=== PATIENT | male | born 1975 | race Caucasian/White ===

== ENCOUNTER 2021-06-10 08:32 | Emergency (ER) | payer MEDICARE, MEDICAID ==
[~2021-06-10] VITALS: Ht 188 cm; Wt 113.6 kg
[2021-06-10] MEDS ORDERED: OLANZapine **IM** 10 mg inj. IM ONE (09:15)
[2021-06-10 10:05] LABS: URINE AMPHETAMINE SCREEN NEGATIVE (Neg); URINE BARBITUATE SCREEN NEGATIVE (Neg); URINE BENZODIAZEPINES SCREEN NEGATIVE (Neg); URINE CANNABINOID SCREEN POSITIVE (Neg); URINE COCAINE SCREEN NEGATIVE (Neg); URINE METHADONE SCREEN NEGATIVE (Neg); URINE OPIATE SCREEN NEGATIVE (Neg); URINE PHENCYCLIDINE SCREEN NEGATIVE (Neg)
[2021-06-10 10:05] LABS: BASOPHILS % (AUTO) 0.2 % (0-1); EOSINOPHILS # (AUTO) 0.1 X10'3 (0-0.9); EOSINOPHILS % (AUTO) 1.4 % (0-6); HEMATOCRIT 39.4 % (42.0-52.0); HEMOGLOBIN 13.5 g/dl (14.0-17.9); LYMPHOCYTES # (AUTO) 1.1 X10'3 (1.1-4.8); LYMPHOCYTES % (AUTO) 11.9 % (21-51); MEAN CORPUSCULAR HEMOGLOBIN 31.1 PG (27.0-31.0); MEAN CORPUSCULAR HGB CONC 34.2 g/dL (33.0-36.5); MEAN CORPUSCULAR VOLUME 90.8 FL (78-98); MONOCYTES # (AUTO) 0.7 X10'3 (0-0.9); MONOCYTES % (AUTO) 7.3 % (2-12); NEUTROPHILS # (AUTO) 7.3 X10'3 (1.8-7.7); NEUTROPHILS % (AUTO) 79.2 % (42-75); PLATELET COUNT 284 X10'3 (140-440); RED BLOOD COUNT 4.34 X10'6 (4.70-6.10); RED CELL DISTRIBUTION WIDTH 14.8 % (11.5-14.5); WHITE BLOOD COUNT 9.2 X10'3 (4.5-11.0)
[2021-06-10] MEDS ORDERED: diphenhydrAMINE 50 mg/ml inj IM ONE (10:20)
[2021-06-10] MEDS ORDERED: LORazepam 2 mg/ml vial IM ONE (10:20)
[2021-06-10 10:22] LABS: ALANINE AMINOTRANSFERASE 40 U/L (12-78); ALBUMIN 3.7 G/DL (3.4-5.0); ALBUMIN/GLOBULIN RATIO 1.1 (1.1-1.5); ALKALINE PHOSPHATASE 82 IU/L (46-116); ANION GAP 10 (8-16); ASPARTATE AMINO TRANSFERASE 30 U/L (10-37); BILIRUBIN,TOTAL 0.5 MG/DL (0.1-1.0); BLOOD UREA NITROGEN 18 MG/DL (7-18); BUN/CREATININE RATIO 17.8 (5.4-32.0); CALCIUM 8.7 MG/DL (8.5-10.1); CHLORIDE 103 MMOL/L (99-107); CREATININE 1.01 MG/DL (0.60-1.10); GLUCOSE 82 MG/DL (70-104); SODIUM 141 MMOL/L (135-145); TOTAL PROTEIN 7.2 G/DL (6.4-8.2); eGFR 80 ML/MIN
[2021-06-10 10:24] LABS: ETHANOL < 0.010 GM/DL (0.0-0.010)
--- NOTE | 2021-06-10 12:40 | NUR ---
PT. TRANSFERRED OVER FROM MAIN ER TO OVERFLOW. PT. PLACED IN BED #24. PT. CHANGED FROM PERSONAL CLOTHING TO GREEN SCRUB SET. STAFF WILL CONTINUE TO MONITOR FOR SAFETY.
--- NOTE | 2021-06-10 13:00 | NUR ---
PACKET FAXED TO [facility] OFFICE
[2021-06-10 13:33] LABS: CLARITY,URINE CLEAR (Clear); COLOR,URINE YELLOW (Yellow); GLUCOSE, URINE NEGATIVE (Neg); KETONES,URINE NEGATIVE (Neg); LEUKOCYTE ESTERASE ,URINE NEGATIVE (Neg); NITRITES, URINE NEGATIVE (Neg); OCCULT BLOOD,URINE NEGATIVE (Neg); PH,URINE 5.5 (4.8-8.0); PROTEIN,URINE NEGATIVE (Neg); UROBILINOGEN,URINE 0.2 E.U/dL (0.2-1.0)
[2021-06-10 13:34] LABS: UA COLLECTION TYPE CLN CATCH MIDSTREAM
--- NOTE | 2021-06-10 14:02 | NUR ---
PATIENT OBSERVED SITTING IN HIS ROOM MAKING DELUSIONAL STATEMENTS OF A "BOMB IN HIS SOCK" AND WATCHING "THOUSANDS OF PEOPLE ". PATIENT NOTED ATTEMPTING TO TALK TO ANOTHER PATIENT ON THE UNIT, STATING, "SORRY FOR WHAT I DID TO YOUR MOM". PATIENT WAS REDIRECTED EASILY, HOWEVER, APPEARS TO BE DISORGANIZED.
--- NOTE | 2021-06-10 15:13 | NUR ---
LEXI'S MOTHER TATI CONTACT INFO: CELL LULING
[2021-06-10] MEDS ORDERED: OLAN5TAB75 PO (15:30)
[2021-06-10] MEDS ORDERED: HALO2TAB PO (15:30)
[2021-06-10] MEDS ORDERED: DULO60CA65 PO (15:30)
[2021-06-10] MEDS ORDERED: METO100T14 PO (15:30)
--- NOTE | 2021-06-10 15:42 | NUR ---
PT. VITAL SIGNS RECHECKED PER MD ORDERS. PT. AROUSES EASILY WHEN NAMED CALLED. PT. PRESENTS WITH RAMBLINGS SPEECH. STAFF WILL CONTINUE TO MONITOR FOR SAFETY.
--- NOTE | 2021-06-10 16:36 | NUR ---
PT. VISIBLE ON THE UNIT RESTING QUIETLY WITH EYES CLOSED. NO DISTRESS NOTED.
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
--- NOTE | 2021-06-10 19:26 | NUR ---
Patient received on the unit in no obvious distress. No physical complaint made. breathing spontanously on room air. Patient is pacing and restless, however he is redirectable. Patient exhibiting delusional thoughts. Patient also admits to homicidal ideation towards his father. He denies having any suicidal ideation at this time.
--- NOTE | 2021-06-10 19:31 | NUR ---
Mental health Clinician is at patient bedside.
[2021-06-10] MEDS: metoprolol tartrate 50mg tablet PO SCH (20:28)
[2021-06-10] MEDS ORDERED: OLANZapine 5mg rapidly disint. tablet PO ONE (20:55)
--- NOTE | 2021-06-10 21:26 | NUR ---
Patient is pacing and agiated. Zyprexa 10 mg given
--- NOTE | 2021-06-11 01:35 | NUR ---
Patient lying in bed in no obvious distress. Observation ongoing.
--- NOTE | 2021-06-11 05:17 | NUR ---
Patient awake and started pacing, he is also making sexually comments. Patient is still deluded. Observation ongoing.
[2021-06-11] MEDS: haloperidol 1mg tablet PO SCH ×2 (05:43→08:38)
[2021-06-11] MEDS: OLANZAPINE 5 MG TABLET PO SCH ×2 (05:46→08:39)
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
[2021-06-11] MEDS ORDERED: diphenhydrAMINE 50 mg/ml inj ONE (06:14)
[2021-06-11] MEDS ORDERED: OLANZapine **IM** 10 mg inj. IM ONE (06:15)
[2021-06-11] MEDS ORDERED: LORazepam 2 mg/ml vial IM ONE (06:15)
[2021-06-11] MEDS ORDERED: diphenhydrAMINE 50 mg/ml inj IM ONE (06:15)
--- NOTE | 2021-06-11 07:30 | NUR ---
PT. VISIBLE ON THE UNIT LYING IN BED. PT. AFTER RECEIVING EMERGENCY IM INJECTIONS, NOW PRESENTS CALM/COOPERATIVE WITH STAFF. PT. EASILY REDIRECTABLE AT THIS TIME. STAFF ASSISTED PATIENT TO RESTROOM. STAFF WILL CONTINUE TO MONITOR FOR SAFETY.
[2021-06-11] MEDS ORDERED: OLANZAPINE 5 MG TABLET PO SCH (08:00)
[2021-06-11] MEDS ORDERED: haloperidol 1mg tablet PO SCH (08:00)
--- NOTE | 2021-06-11 08:15 | NUR ---
PT. BREAKFAST TRAY PLACED AT BEDSIDE.
[2021-06-11] MEDS: duloxetine 30mg CAPSULE.DR PO SCH (08:38)
[2021-06-11] MEDS: metoprolol tartrate 50mg tablet PO SCH ×2 (08:42→20:00)
--- NOTE | 2021-06-11 08:50 | NUR ---
PT. [id number] THIS SHIFT CALM AND COOPERATIVE DURING MORNING ASSESSMENT. PT. DENIES ANY CURRENT SI OR VISUAL HALLUCINATIONS. PT. STATES HOMICIDAL IDEATION TOWARDS HIS FATHER. PT. STATED HEARING VOICES THAT ARE TELLING HIM THE STREETS OF [place] ARE PAVED IN GOLD. PT. DENIES ANY COMMAND HALLUCINATIONS. PT. MEDICATION COMPLIANT. CONSUMED 100% OF BREAKFAST. PT. HAS NOTICABLE SWELLING IN [place]. LOWER FEET STATES IT HAS BEEN LIKE THAT FOR A LONG TIME. PT. WITH DELUSIONAL THOUGHT PROCESS REQUIRES FREQUENT REDIRECTING FROM STAFF. STAFF WILL CONTINUE TO MONITOR FOR SAFETY.
--- NOTE | 2021-06-11 11:01 | NUR ---
PT. RESTING QUIETLY WITH EYES CLOSED NO DISTRESS NOTED.
--- NOTE | 2021-06-11 12:20 | NUR ---
PT. SITTING ON THE EDGE OF BED EATING LUNCH.
--- NOTE | 2021-06-11 13:58 | NUR ---
PT. RESTING QUIETLY WITH EYES CLOSED NO DISTRESS NOTED.
--- NOTE | 2021-06-11 14:18 | NUR ---
Pt resting quietly, no signs/symptoms of distress.
--- NOTE | 2021-06-11 16:16 | NUR ---
RESTING QUIETLY WITH EYES CLOSED.
--- NOTE | 2021-06-11 17:35 | NUR ---
PT. AWAKE AT THIS TIME. PT. VITALS SIGNS OBTAINED. PT. STATES," I FEEL GOOD AFTER FINALLY GETTING SOME SLEEP". PT. STATES THAT HE NEEDS TO STAY HERE A COUPLE OF MORE DAYS THEN HE WILL BE READY TO GO HOME. PT. CALM AND COOPERATIVE WITH STAFF. WILL CONTINUE TO MONITOR FOR SAFETY.
--- NOTE | 2021-06-11 18:36 | NUR ---
PATIENT RECEIVED ON THE UNIT IN NO OBVIOUS DISTRESS. NO PHYSICAL COMPLAINT MADE. BREATHING SPONTANOUSLY ON ROOM AIR. PATIENT IS TALKATIVE WITH DELUSIONAL THOUGHTS. PATIENT HAVING HOMICIDAL IDEATION TOWARD HIS DAD. HE DENIES HAVING ANY SUICIDAL IDEATION AT THIS TIME.
[2021-06-11] MEDS: LORazepam 1 MG tablet PO PRN (22:04)
--- NOTE | 2021-06-11 23:19 | NUR ---
Patient lying in bed resting in no obvious distress. Observation ongoing
--- NOTE | 2021-06-12 03:03 | NUR ---
PATIENT AWAKE WITH TO THE BATHROOM, THEN SAT ON BED, STARTED TO MAKE SEXUALLY COMMENTS. HE STILL EXHIBITING DELUDED THOUGHTS. OBSERVATION ONGOING.
[2021-06-12] MEDS: LORazepam 1 MG tablet PO PRN ×4 (03:36→17:51)
--- NOTE | 2021-06-12 07:00 | NUR ---
Received pt asleep in bed.
[2021-06-12] MEDS: OLANZAPINE 5 MG TABLET PO SCH (07:33)
[2021-06-12] MEDS: metoprolol tartrate 50mg tablet PO SCH ×2 (07:33→19:46)
[2021-06-12] MEDS: duloxetine 30mg CAPSULE.DR PO SCH (07:33)
[2021-06-12] MEDS: haloperidol 1mg tablet PO SCH (07:38)
[2021-06-12] MEDS: divalproex sodium 500mg tablet.DR PO SCH ×3 (08:27→17:50)
--- NOTE | 2021-06-12 09:00 | NUR ---
Pt up and restless, pacing and hyperverbal and grandiose and intrusive and not responding to redirection without security present. Pt refusing medications without security present.
[2021-06-12] MEDS ORDERED: LORazepam 1 MG tablet PO ONE (09:35)
--- NOTE | 2021-06-12 11:00 | NUR ---
Pt asleep by 1015 and continues to sleep now.
--- NOTE | 2021-06-12 11:03 | NUR ---
Pt slipped out of bed to the floor. Addendum: 06/12/21 at 1117 by DONTE Pt was trying to get up to the bathroom.
--- NOTE | 2021-06-12 13:02 | NUR ---
Relieving [place] for break.
--- NOTE | 2021-06-12 13:07 | NUR ---
Pt is sleeping on his back and snoring. Unable to wake him at this time for his 1230 dose of Depakote. Will allow him to sleep. RR even and unlabored.
--- NOTE | 2021-06-12 14:00 | NUR ---
Pt up used the restroom with stand by assist. Pt now eating and had his afternoon Depakote and Ativan 1mg PRN. He is keeping to himself. Compliants of back pain reports, "Ibuprofen helps with the pain."
--- NOTE | 2021-06-12 14:24 | NUR ---
Pt resting on his back with his eyes opened. He states, "we are going to war with atomic bombs and will be attacked, get ready for it." Encouraged pt to rest and to keep his voice down as to not upset the other patient's. Pt agreed.
--- NOTE | 2021-06-12 15:00 | NUR ---
Pt remains asleep at this time. Pt awoke for medications and then returned to sleep.
--- NOTE | 2021-06-12 17:00 | NUR ---
Pt continues to sleep without complaints.
--- NOTE | 2021-06-12 18:20 | NUR ---
Received patient on the unit lying in bed . No obvious distress noted. No physical complaint made. Breathing spontanously on room air. Patient is still deluded and having homicidal ideation toward his father. Patient denies having any suicidal ideation at this time.
--- NOTE | 2021-06-12 19:23 | NUR ---
PT. TRANSFER TO ER MAIN BED #15. PT. AMBULATED TO MAIN ER WIT STAFF AND SECURITY OFFICERS. STAFF WILL CONTINUE TO MONITOR FOR SAFETY.
--- NOTE | 2021-06-12 20:02 | NUR ---
MEDICATION COMPLIANT. VISIBLE ON THE UNIT RESTING QUIETLY.
--- NOTE | 2021-06-12 21:52 | NUR ---
PT. RESTING QUIETLY WITH EYES CLOSED NO DISTRESS NOTED. STAFF WILL CONTINUE TO MONITOR FOR SAFETY.
--- NOTE | 2021-06-12 22:12 | NUR ---
PATIENT ASLEEP IN NO OBVIOUS DISTRESS. OBSERVATION ONGOING.
--- NOTE | 2021-06-12 23:15 | NUR ---
PATIENT GOT ACCEPTED AT [facility]. DR. ANTONIO NAGY IS THE ACCEPTANCE PHYSICIAN .THE ADDRESS IS [address] [place] [address]. COVID RESULT WAS FAX OVER.
[2021-06-13] MEDS: LORazepam 1 MG tablet PO PRN ×2 (01:50→08:34)
--- NOTE | 2021-06-13 01:57 | NUR ---
PATIENT STARTED PACING AND BECOMING SEVERELY ANXIOUS. pATIENT WAS GIVEN ATIVAN 1 MG PO.
--- NOTE | 2021-06-13 03:18 | NUR ---
PATIENT ASLEEP BUT EASILY AROUSE. NO OBVIOUS DISTRESS NOTED. OBSERVATION ONGOING.
[2021-06-13] MEDS ORDERED: haloperidol lactate 5mg/ml inj IM ONE (04:00)
[2021-06-13] MEDS ORDERED: LORazepam 2 mg/ml vial IM ONE (04:00)
[2021-06-13] MEDS ORDERED: diphenhydrAMINE 50 mg/ml inj IM ONE (04:00)
--- NOTE | 2021-06-13 04:25 | NUR ---
PATIENT BECAME SEVERELY ANXIOUS AND PACING IN ROOM. STATING THAT HE NEED TO DIFFUSE THE BOMB. PATIENT WAS GIVEN ATIVAN 2 MG, BENADRYL 50 MG AND HALDOL 5 MG IM
--- NOTE | 2021-06-13 06:11 | NUR ---
Patient awake and alert. No obvious distress noted. Observation ongoing.
[2021-06-13 06:12] VITALS: BP_DIAS 82
--- NOTE | 2021-06-13 07:00 | NUR ---
Received Pt awake in bed talking to himself, and in no distress at this time.
[2021-06-13] MEDS: OLANZAPINE 5 MG TABLET PO SCH (08:32)
[2021-06-13 08:34] VITALS: BP_SYST 130
[2021-06-13] MEDS: divalproex sodium 500mg tablet.DR PO SCH (08:34)
[2021-06-13] MEDS: metoprolol tartrate 50mg tablet PO SCH (08:34)
[2021-06-13] MEDS: haloperidol 1mg tablet PO SCH (08:35)
--- NOTE | 2021-06-13 09:00 | NUR ---
Pt ate breakfast and took AM meds w/o issue. Pt talking very loud at times and quiets when asked to do so. Pt informed he will be leaving today and he appeared to be pleased about leaving the ER. Pt up to bathroom and returned to bed.
--- NOTE | 2021-06-13 11:30 | NUR ---
Pt dressed and dc'd to [facility] assembly line driver, who will be driving Pt to [facility] in [place] where Pt has been accepted for In-Pt Tx.
== END 2021-06-13 11:57 ==
LOC: ER 08:33
DX: F22 Delusional disorders (principal); Z20.822 Contact with and (suspected) exposure to COVID-19; Z79.899 Other long term (current) drug therapy
CPT/HCPCS: 36415; 80053; 80305; 80320; 81003; 84443; 85025; 87635; 96372; 99285; C9803; J1200; J1630; J2060; J3490